=== PATIENT | female | born 1955 | race Two or more races ===

== ENCOUNTER 2021-01-25 07:48 | Day surgery (SDC) | payer OTHER ==
[~2021-01-25 07:48] MED LIST: ALBUTEROL IH; COZAAR50 MG PO; METHO PO; OXYBU PO; SIMVAST PO; SINGULAIR10 MG PO; SYNTHROID88 MCG PO; [UNRECOGNIZED DRUG - OTHER] IH
[2021-01-25] MEDS ORDERED: MACROBID 100 M100 MG PO (13:25)
[2021-01-25] MEDS ORDERED: ULTRACET PO (13:26)
== END 2021-01-25 18:20 | disposition home or self-care (01) ==
LOC: CIR.AMB 07:48
PROVIDERS: ATTEND Obstetrics & Gynecology Gynecology
DX: N39.3 Stress incontinence (female) (male) (principal); Z20.822 Contact with and (suspected) exposure to COVID-19
CPT/HCPCS: 57288; C1771